=== PATIENT | female | born 1960 | race Caucasian/White ===

== ENCOUNTER 2022-05-15 19:36 | Emergency (ER) | payer BC ==
[2022-05-15] MEDS ORDERED: HYDROmorphone 1 MG/ML Syringe IM ONE (21:39)
[2022-05-15] MEDS ORDERED: Acetaminophen/HYDROcodone 325-5 MG Tab PO ONE (22:55)
== END 2022-05-15 23:23 | disposition home or self-care (01) ==
LOC: JD.ED 19:36
DX: S63.256A Unspecified dislocation of right little finger, initial encounter (principal); S00.83XA Contusion of other part of head, initial encounter; Z91.013 Allergy to seafood; Z90.710 Acquired absence of both cervix and uterus; W10.9XXA Fall (on) (from) unspecified stairs and steps, initial encounter
CPT/HCPCS: 70450; 70486; 72125; 73140; 96372; 99284; A9270; J1170

== ENCOUNTER 2023-12-28 13:56 | Day surgery (SDC) | payer BC ==
[2023-12-28] MEDS: Polymyxin B/Trimethoprim 10 ML Bottle EYELF SCH (14:52)
[2023-12-28] MEDS: Brimonidine 0.2% Ophth Soln 5 ML Bottle EYELF SCH (15:02)
[2023-12-28] MEDS: Phenylephrine 2.5% Ophth Soln 2 ML Bot EYELF SCH (15:10)
[2023-12-28] MEDS: Tropicamide 1% Ophth Soln 3 ML Bottle EYELF SCH (15:17)
[2023-12-28] MEDS: Tetracaine HCl/PF 0.5% 4 ML Bottle EYEBOTH SCH (16:03)
[2023-12-28] MEDS: Lidocaine 1% PF 2 ML SDV INJECT SCH (16:25)
[2023-12-28] MEDS: Cefuroxime 10 MG/ML SYRINGE EYELF SCH (16:45)
[2023-12-28] MEDS: Pilocarpine 4% Ophth Soln 15 ML Bot EYELF SCH (16:45)
== END 2023-12-28 16:53 | disposition home or self-care (01) ==
LOC: JD.SDS 13:56
PROVIDERS: ATTEND Ophthalmology
DX: H25.813 Combined forms of age-related cataract, bilateral (principal); H35.373 Puckering of macula, bilateral; H16.103 Unspecified superficial keratitis, bilateral; H16.223 Keratoconjunctivitis sicca, not specified as Sjogren's, bilateral; H43.813 Vitreous degeneration, bilateral; H40.013 Open angle with borderline findings, low risk, bilateral; Z79.899 Other long term (current) drug therapy
CPT/HCPCS: 66984; A9270; J0697; J3490